=== PATIENT | female | born 1995 | race Caucasian/White ===

== ENCOUNTER 2017-07-10 13:15 | Emergency (ER) | payer OTHER ==
[~2017-07-10] VITALS: Ht 157.5 cm; Wt 59.1 kg
[2017-07-10 13:27] VITALS: TEMP 36.7; Ht 157.5 cm; Wt 59.1 kg
--- NOTE | 2017-07-10 14:25 | DIAGNOSTIC IMAGING REPORT ---
NASAL BONES MIN 3 VIEWS HISTORY: 22 years-old Female nose pain s/p trauma acute nasal pain status post trauma COMPARISON: None available TECHNIQUE: 3 views of the nasal bones FINDINGS: There are subtle acute nondisplaced fractures involving the bilateral nasal bones without significant associated soft tissue swelling. No opaque foreign body. Imaged paranasal sinuses and mastoid air cells appear clear. IMPRESSION: Subtle acute nondisplaced fractures of the bilateral nasal bones. The above report was generated using voice recognition software. It may contain grammatical, syntax or spelling errors. Electronically signed by: Berry Dias M.D. 07/10/2017 2:24 PM Dictated Date/Time: 07/10/2017 2:22 PM
--- NOTE | 2017-07-10 15:10 | EMERGENCY ROOM VISIT NOTE ---
History First contact with patient: 13:32 Chief Complaint: NASAL PAIN/INJURY Stated Complaint: BROKEN NOSE, TENDER, INFLAMED History of Present Illness The patient is a 22 year old female who presents to the Emergency Room via private vehicle accompanied by female friend with complaints of "broken nose, tender, inflamed". The patient states that this past evening around 2:58 AM she was walking, tripped and fell and struck the nose against the corner of a wall. She states that since then she has had nasal pain, and had some bleeding from a small laceration she notes on the left aspect of her nose. She denies loss of consciousness, dizziness, lightheadedness. She believes her tetanus is up-to-date. There is some minimal blood from the nostril. Review of Systems A complete 6-point Review of Systems was discussed with the patient, with pertinent positives and negatives listed in the History of Present Illness. All remaining Review of Systems questions can be considered negative unless otherwise specified. Past Medical/Surgical History No pertinent Family History Noncontributory. Social History Smoking Status: Never Smoker Patient is a student and lives locally. Current/Historical Medications Scheduled Amoxicillin & Pot Clavulanate (Augmentin 875-125 mg), 1 TAB PO BID Physical Exam Vital Signs Date Time Temp Pulse Resp B/P (MAP) Pulse Ox O2 Delivery O2 Flow Rate FiO2 07/10/17 15:25 72 18 134/76 99 Room Air 07/10/17 13:27 36.7 90 18 122/79 99 Room Air Physical Exam VITAL SIGNS - Vital signs and nursing notes were reviewed. Stable. GENERAL -22-year-old female appearing her stated age who is in no acute distress. Communicates well with provider and answers questions appropriately. SKIN -overlying the left aspect of the patient's nose there is a small 1 cm laceration which displays healing and does not gape. Minimal tenderness noted over this region. No step-off deformity. HEAD - NC/AT. EYES - PERRL with EOMI bilaterally. Sclera anicteric. No hyphema. EARS - No deformities of external structures noted on gross examination bilaterally. No hemotympanum. NOSE - Midline and without cyanosis. No epistaxis or purulent drainage noted. Septum midline without deviation or septal hematoma noted. Minimal dry blood in the nostrils noted. No active bleeding. Septum unremarkable. MOUTH/OROPHARYNX - Without perioral cyanosis. Buccal mucosa pink and moist and without leukoplakia. Tongue midline with equal elevation of palate bilaterally. No tonsillar hypertrophy, erythema, or exudates noted. Fair dentition noted. NEUROLOGIC - Cranial nerves II through XII grossly intact. Sensory intact to light touch throughout. PSYCH - A&O, and cooperates fully with examiner. Pt is very pleasant and interacts well with examiner. Medical Decision & Procedures ER Provider Diagnostic Interpretation: NASAL BONES MIN 3 VIEWS HISTORY: 22 years-old Female nose pain s/p trauma acute nasal pain status post trauma COMPARISON: None available TECHNIQUE: 3 views of the nasal bones FINDINGS: There are subtle acute nondisplaced fractures involving the bilateral nasal bones without significant associated soft tissue swelling. No opaque foreign body. Imaged paranasal sinuses and mastoid air cells appear clear. IMPRESSION: Subtle acute nondisplaced fractures of the bilateral nasal bones. The above report was generated using voice recognition software. It may contain grammatical, syntax or spelling errors. Electronically signed by: Berry Dias M.D. 07/10/2017 2:24 PM Dictated Date/Time: 07/10/2017 2:22 PM Medical Decision Patient was seen and evaluated as above in room D5. Review was performed of nursing notes and vital signs. After obtaining a thorough history and physical examination the above work up was performed. She presents to us today status post nasal trauma. She does have a small superficial appearing laceration to the left side of the nose. It does not gape when cleansed. This was cleansed with normal saline, Betadine and dressed with a bacitracin dressing. I did elect to obtain radiographs of the nose. This reveals nondisplaced bilateral nasal bone fractures. I will recommend she follows with ear nose and throat in the next 3-5 days. This likely will not require any additional management will be needed however to be thorough feel that this follow-up is warranted. I do not believe that any wound closure of the superficial laceration is required as again it does not gape with traction and appears to be healing very well. Because there is a fracture just below/beneath the laceration I will cover the patient with antibiotics in the event that the fracture could have been potentially exposed at one time. She will be given Augmentin. She was educated upon worrisome symptoms which to return. I did provide her a copy of her films in the event that she follows up at home noting that she will be leaving Monday from the [place] to go home. The patient was educated upon management, had questions answered prior to discharge, and was discharged home in good condition. In the evaluation and treatment of this patient the following differential diagnoses were entertained: Nasal bone fracture, contusion, laceration, among others. Impression Primary Impression: Nasal bone fractures Additional Impression: Laceration Departure Information Dispostion Home / Self-Care Condition GOOD Prescriptions Amoxicillin & Pot Clavulanate (Augmentin 875-125 mg) 1 Tab Tab 1 TAB PO BID for 7 Days, #14 TAB Prov: Fred Sauceda PA-C 07/10/17 Referrals No Doctor, Assigned (PCP) Gaetano Sanchez MD Patient Instructions My [facility] Additional Instructions You have been treated in the Emergency Department for nasal pain. You do have a fracture of your nose. It is not displaced Augmentin 1 tablet every 12 hours for 7 days. This is to help prevent infection. Please apply a small amount of bacterial ointment daily to the nose for 3 days. For pain control, you can use the following [id number] medicines: - Regular strength (325mg/tab) Tylenol (acetaminophen) 2 tabs every 4-6 hours as needed. Do not exceed 12 tablets in a 24 hour period. Avoid taking more than 3 grams (3000 mg) of Tylenol per day. This includes any other sources of acetaminophen you may take on a regular basis. - Regular strength (200 mg/tab) Advil (ibuprofen) 1-2 tabs every 4-6 hours as needed. Do not exceed a dose of 3200 mg per day. If this is a recent injury (<24 hrs), ice can be applied to the area of pain for the first 3 days to help decrease pain and inflammation. You were given the contact information for local ear nose and throat surgeon which I recommend calling to schedule follow-up within the next 3-5 days. If you have difficulty please call here at [phone]. Please return with any new/concerning symptoms. NASAL BONES MIN 3 VIEWS HISTORY: 22 years-old Female nose pain s/p trauma acute nasal pain status post trauma COMPARISON: None available TECHNIQUE: 3 views of the nasal bones FINDINGS: There are subtle acute nondisplaced fractures involving the bilateral nasal bones without significant associated soft tissue swelling. No opaque foreign body. Imaged paranasal sinuses and mastoid air cells appear clear. IMPRESSION: Subtle acute nondisplaced fractures of the bilateral nasal bones. Problem Qualifiers
[2017-07-10 15:25] VITALS: BP 134/76; PULSE 72; O2SAT 99
[2017-07-10] MEDS ORDERED: AMOX875T PO (15:28)
== END 2017-07-10 15:35 | disposition home or self-care (01) ==
LOC: C.EDB 13:17 → C.EDD 15:35
DX: S02.2XXA Fracture of nasal bones, initial encounter for closed fracture (principal); S01.21XA Laceration without foreign body of nose, initial encounter; W18.09XA Striking against other object with subsequent fall, initial encounter; Y93.01 Activity, walking, marching and hiking